=== PATIENT | male | born 1980 | race Caucasian/White ===

== ENCOUNTER 2023-06-03 13:31 | Emergency (ER) | payer MEDICAID ==
[~2023-06-03] VITALS: Ht 167.6 cm; Wt 81.6 kg
[2023-06-03 13:50] VITALS: BP 120/70; PULSE 87; RESP 18; TEMP 97.1; O2SAT 98
--- NOTE | 2023-06-03 14:20 | NUR ---
PT AMBULATED TO BED 5
--- NOTE | 2023-06-03 14:25 | NUR ---
MD SARABIA AT BEDSIDE FOR EVALUATION
[2023-06-03] MEDS ORDERED: TETRACAINE HCL/PF 0.5% OPTH 4 ML BTL OP ONE (14:30)
[2023-06-03] MEDS ORDERED: TOMOMETER 1 DEV DEV MC ONE (14:30)
[2023-06-03] MEDS ORDERED: FLUORESCEIN OPTH STRIP 1 MG OP ONE (14:30)
[2023-06-03] MEDS ORDERED: POLY10SO OP ×2 (14:58→15:13)
[2023-06-03 15:10] VITALS: PULSE 87
--- NOTE | 2023-06-03 15:10 | NUR ---
Patient discharged with v/s stable. Written and verbal after care instructions FOR CORNEAL ABRASION AND BLURRED VISION given and explained. Patient alert, oriented and verbalized understanding of instructions. Ambulatory with steady gait. All questions addressed prior to discharge. ID band removed. Patient advised to follow up with PMD. Rx of POLYTRIM EYE DROPS given. Opportunity to ask questions provided and answered.
[2023-06-03 15:14] VITALS: O2SAT 98
--- NOTE | 2023-06-03 15:14 | NUR ---
The patient's care was reviewed and supervised by ED Agency Nurse 9, RN, RN.
== END 2023-06-03 15:10 | disposition home or self-care (01) ==
LOC: MED 13:31
DX: H53.8 Other visual disturbances (principal); I10 Essential (primary) hypertension; E11.9 Type 2 diabetes mellitus without complications; Z79.4 Long term (current) use of insulin; Z79.899 Other long term (current) drug therapy
CPT/HCPCS: 99283